=== PATIENT | female | born 1940 | race Caucasian/White ===

== ENCOUNTER → 2017-04-14 | Outpatient (CLI) | payer MEDICARE ==
--- NOTE | 2017-04-14 15:03 | BD ---
EXAMINATION TYPE: MG DEXA axial skeleton. DATE OF EXAM: 04/14/2017 CLINICAL HISTORY: M81.8 Osteoporosis w/o complications Height: 60.5 inches Weight: 138 FRAX RISK QUESTIONS: Alcohol (3 or more units per day): no Family History (Parent hip fracture): no Glucocorticoids (More than 3mos): no (Ex: prednisone, prednisolone, methylprednisolone, dexamethasone, and hydrocortisone). History of Fracture in Adulthood: no Secondary Osteoporosis: 1. Type 1 Diabetes: no 2. Hyperthyroidism: no 3. Menopause before 45: no 4. Malnutrition: no 5. Chronic liver disease: no Rheumatoid Arthritis: no Current Tobacco Use: no RISK FACTORS HISTORY OF: Hip Fracture (Right/Left): no Spine Fracture: no History of Wrist Fracture: no Surgery to Spine/Hip(right/left)/Wrist (right/left): no Family History of Osteoporosis: no Active: yes Diet low in dairy products/other sources of calcium: somewhat, dairy upsets stomach Postmenopausal woman: yes Take estrogen and/or progesterone medications: not now How long: for a couple years used "patch" Lost more than 2 inches in height since high school: no Frequent falls: no Poor Health: no Hyperparathyroidism: no Adrenal Insufficiency: no MEDICATIONS: Prednisone or other steroids: no Thyroid Medications: no Osteoporosis Medications: not now Which medication: Boniva How Long: very briefly Additional Medications: Vitamin D, blood pressure meds, cholesterol meds Additional History: osteoporosis w/o complications, severe scoliosis, alf use of antacids EXAM MEASUREMENTS: Bone mineral densitometry was performed using the [email or web address] System. Bone mineral density was attempted to be measured about the Lumbar spine; however unit unable to shiela lyze due to the severe scoliosis present Bone mineral density about the R hip (g/cm2): 0.905 Bone mineral density about the L hip (g/cm2): 0.890 T Score values are as follows: -----R Neck: -1.0 -----L Neck: -1.1 -----R Total: -1.2 -----L Total: -1.3 Bone mineral density has: Decreased -9.2% since study of: 08/29/2007 IMPRESSION: Normal (Values between +1 and -1 indicate normal bone mass). Consider repeating this study in 5 year s or sooner if there is some new clinical indication. Right Neck Osteopenia (T Score between -2.5 and -1 as noted by T score values Left Neck & Bilateral Totals There is slightly increased risk of fracture and the patient may be considered for treatment. Re-Screen 2-5 years. NOTE: T-SCORE=SD OF THE YOUNG ADULT MEAN.
== END | disposition home or self-care (01) ==
LOC: RADBDWWP 08:28
PROVIDERS: ATTEND Family Medicine
DX: M85.80 Other specified disorders of bone density and structure, unspecified site (principal)
CPT/HCPCS: 77080

== ENCOUNTER → 2019-03-12 | Outpatient (CLI) | payer MEDICARE ==
--- NOTE | 2019-03-12 14:17 | XR ---
EXAMINATION TYPE: XR shoulder complete LT DATE OF EXAM: 03/12/2019 COMPARISON: NONE HISTORY: Pain TECHNIQUE: Three views are submitted. FINDINGS: The osseous structures are intact. There is no acute fracture or dislocation. Arthropathy of the AC joint with severe narrowing and spurring. IMPRESSION: 1. Severe AC joint arthropathy correlate for rotator cuff impingement. 2. There is subsegmental consolidation adjacent to left heart border.
== END | disposition home or self-care (01) ==
LOC: RADXRMAIN 13:56
PROVIDERS: ATTEND Orthopaedic Surgery
DX: M19.012 Primary osteoarthritis, left shoulder (principal)

== ENCOUNTER → 2019-03-16 | Outpatient (CLI) | payer MEDICARE ==
--- NOTE | 2019-03-16 14:54 | US ---
EXAMINATION TYPE: US thyroid st tissue head/neck DATE OF EXAM: 03/16/2019 COMPARISON: NONE CLINICAL HISTORY: E04.1 Non toxic single thyroid nodule. Thyroid nodule GLAND SIZE: Right Lobe: 4.4 x 1.5 x 1.2 cm Overall Parenchyma: heterogenous Left Lobe: 3.2 x 1.1 x 1.3cm Overall Parenchyma: heterogeneous Isthmus Thickness: 0.2 cm NODULES RIGHT: # of nodules measured on right: 0 LEFT: # of nodules measured on left: 1 1. 0.9 X 0.7 x 0.9 cm isoechoic nodule at the lower pole with poorly defined margins; . This nodul e is wider than tall and shows intranodular vascularity. Prior size: no prior ISTHMUS: # of nodules measured in the isthmus: 0 Bilateral neck scanned, no evidence of lymphadenopathy. IMPRESSION: Solitary subcentimeter left thyroid nodule for which surveillance is recommended. No greater than 1 c m thyroid nodule is seen.
== END ==
LOC: RADUSWWP 13:19
PROVIDERS: ATTEND Family Medicine
DX: E04.1 Nontoxic single thyroid nodule (principal)
CPT/HCPCS: 76536

== ENCOUNTER → 2020-05-21 | Outpatient (CLI) | payer MEDICARE ==
--- NOTE | 2020-05-21 16:28 | BD ---
EXAMINATION TYPE: Axial Bone Density DATE OF EXAM: 05/21/2020 COMPARISON: 04/14/2017 CLINICAL HISTORY: 79-year-old female postmenopausal screening Height: 59.5 IN Weight: 130 LBS FRAX RISK QUESTIONS: Secondary Osteoporosis: 3. Menopause before 45: YES PARTIAL HYST AGE 35 RISK FACTORS HISTORY OF: Active: MODERATE Diet low in dairy products/other sources of calcium: YES Postmenopausal woman: PARTIAL HYST AGE 35 Lost more than 2 inches in height since high school: YES 5" MEDICATIONS: Osteoporosis Medications: NOT NOW Which medication: Boniva How Long: TOOK FOR 1 YEAR Additional Medications: VIT D, CRESTOR, BLOOD PRESSURE MED EXAM MEASUREMENTS: Bone mineral densitometry was performed using the [employer] System. Bone mineral density as measured about the Lumbar spine is: ----- L1-L4(G/cm2): 0.548 T Score Values are as follows: ----- L2: -6.1 ----- L3: -4.7 ----- L4: -5.1 ----- L1-L4: -5.3 Unable to determine if these measurements are accurate due to a severe underlying scoliosis. Bone mineral density NO CHANGE SINCE 04/14/2017 Bone mineral density about the R hip (g/cm2): 0.809 Bone mineral density about the L hip (g/cm2): 0.861 T Score values are as follows: -----R Neck: -1.6 -----L Neck: -1.3 -----R Total: -1.8 -----L Total: -1.7 Bone mineral density has: Decreased -15.3% since study of: 04/14/2017 IMPRESSION: There is a severe lumbar scoliosis. Unable to determine if the bone densitometry measurements in the lumbar spine are accurate. Measurements there would suggest osteoporosis. Measurements at the hips wo uld suggest osteopenia. Consider an additional measurement at the forearm to help determine osteopeni a versus osteoporosis. NOTE: T-SCORE=SD OF THE YOUNG ADULT MEAN.
--- NOTE | 2020-05-22 12:20 | MM ---
Reason for exam: screening (asymptomatic). Last mammogram was performed 1 year and 8 months ago. History: Patient is postmenopausal. Cyst aspiration of the left breast. Cyst aspiration of the right breast. Excisional biopsy of the left breast. Took estrogen for 11 years. Physical Findings: A clinical breast exam by your physician is recommended on an annual basis and results should be correlated with mammographic findings. MG 3D Screening Mammo W/Cad Bilateral CC and MLO view(s) were taken. XCCL view(s) were taken of the left breast. Prior study comparison: September 07, 2018, bilateral MG 3d screening mammo w/cad. August 06, 2015, mammogram, performed at [facility]. The breast tissue is heterogeneously dense. This may lower the sensitivity of mammography. No significant changes when compared with prior studies. ASSESSMENT: Benign, BI-RAD 2 RECOMMENDATION: Routine screening mammogram of both breasts in 1 year.
== END | disposition home or self-care (01) ==
LOC: RADMAMWWP 07:48
PROVIDERS: ATTEND Family Medicine
DX: Z12.31 Encounter for screening mammogram for malignant neoplasm of breast (principal); M41.86 Other forms of scoliosis, lumbar region
CPT/HCPCS: 77063; 77067; 77080

== ENCOUNTER 2022-03-02 07:35 | Day surgery (SDC) | payer MEDICARE ==
[2022-03-01 10:08] VITALS: BMI 26.4
[~2022-03-02 07:35] MED LIST: LACTATED RINGERS 1,000 ML IV SCH; LIDOCAINE 1% (10MG/ML) FOR IV START INTRADERMA PRN
[2022-03-02 08:02] VITALS: TEMP 97.9
[2022-03-02] MEDS ORDERED: PROPOFOL 10 MG/ML 20 ML VIAL IV ONE (08:58)
[2022-03-02] MEDS ORDERED: LIDOCAINE 2% INJ 20 MG/ML (2 ML VIAL) ONE (08:58)
--- NOTE | 2022-03-02 09:09 | P.PCN ---
Date of Procedure: 03/02/22 Procedure(s) Performed: BRIEF HISTORY: Patient is a 81-year-old, pleasant, white female scheduled for an upper endoscopy as a part of evaluation of GERD/intermittent dysphagia to solids of several years duration. She was on omeprazole 20 mg daily and recently her medication was changed to Protonix 40 mg daily because of worsening symptoms.. PROCEDURE PERFORMED: Esophagogastroduodenoscopy with biopsy. PREOPERATIVE DIAGNOSIS: GERD/intermittent dysphagia to solids. IV sedation per anesthesia. PROCEDURE: After informed consent was obtained, the patient was brought into the endoscopy unit. IV sedation was administered by Anesthesia under continuous monitoring. Initially the Olympus GIF-140 video endoscope was inserted into the mouth. Esophagus intubated without any difficulty. It was gradually advanced into the stomach and duodenum and carefully examined. The bulb and the second part of the duodenum appeared normal. The scope at this time was withdrawn to the stomach, adequately insufflated with air, and upon careful examination, mucosa of the antrum, had mild gastritis and biopsies were done from this area. The body, cardia and the fundus appeared normal. The scope was then withdrawn into the esophagus. The GE junction was located at 36 cm from the incisors. It was an early distal esophageal stricture at the GE junction which was dilated using 12-15 mm balloon in a sequential fashion for 30 seconds. The esophagus appeared normal. There were no erosions or ulcerations seen and the patient tolerated the procedure well. IMPRESSION: 1. Distal esophageal early stricture status post balloon dilation using 12-15 mm TTS balloon as described above. 2. Mild antral gastritis. RECOMMENDATIONS: The findings of this examination were discussed with the patient as well as a family. He was advised to be on a clear liquid diet for lunch. Continue with Protonix 40 mg daily and follow antireflux measures..
[2022-03-02 09:17] VITALS: RESP 18
[2022-03-02 09:31] VITALS: BP 138/90; PULSE 86
== END 2022-03-02 09:50 | disposition home or self-care (01) ==
LOC: ORWHC2ENDO 07:35
PROVIDERS: ATTEND Internal Medicine Gastroenterology
DX: K29.50 Unspecified chronic gastritis without bleeding (principal); Z79.899 Other long term (current) drug therapy
CPT/HCPCS: 43239; 43249; 88305; J2704; J2001; C1726

== ENCOUNTER 2022-04-03 18:15 | Emergency (ER) | payer MEDICARE ==
[2022-04-03 18:32] VITALS: BP 142/64; PULSE 87; RESP 16
--- NOTE | 2022-04-03 19:05 | ED ---
General Adult HPI - General Chief complaint: Extremity Injury, Lower Stated complaint: leg injury Time Seen by Provider: 04/03/22 19:04 Source: patient Mode of arrival: ambulatory Limitations: no limitations - History of Present Illness Initial comments: Patient presents to the ED with her for evaluation. Patient states that she has had right lower extremity pain for the past 2 days. Patient states that her pain began after lifting some barrels of gravel while gardening, but she denies any definite injury at that time. Patient denies direct leg or back trauma, and she denies falling. Patient states that her pain began along the side of her right hip, but it has since moved down to behind her right knee and into her right wilson region. Patient states that her pain is dull and constant. Patient denies any aggravation with ambulation, palpation or movement. Patient denies fever or chills, headache, focal numbness/weakness/neuro deficit, chest pain or pressure, dyspnea, palpitations, dizziness, abdominal pain, nausea or vomiting, incontinence or urinary retention, or any other symptoms or complaints. Patient states that she has been taking Tylenol for her pain without relief. Patient states that her pain is currently 8/10 in severity. - Related Data Home Medications Medication Instructions Recorded Confirmed Aspirin 81 mg PO DAILY 03/01/22 03/01/22 Cholecalciferol [Vitamin D3 (25 25 mcg PO DAILY 03/01/22 03/02/22 Mcg = 1000 Iu)] Pantoprazole [Protonix] 40 mg PO DAILY 03/01/22 03/01/22 Rosuvastatin [Crestor] 10 mg PO DAILY 03/01/22 03/01/22 amLODIPine [Norvasc] 5 mg PO HS 03/01/22 03/02/22 Previous Rx's Medication Instructions Recorded methylPREDNISolone Dose Pack 24 mg PO DAILY #1 tab 04/03/22 [Medrol Dose Pack] Allergies Allergy/AdvReac Type Severity Reaction Status Date / Time ibandronate sodium Allergy Nausea & Verified 04/03/22 18:32 [From Boniva] Vomiting Review of Systems ROS Statement: Those systems with pertinent positive or pertinent negative responses have been documented in the HPI. ROS Other: All systems not noted in ROS Statement are negative. Past Medical History Past Medical History: Hyperlipidemia, Hypertension, Sleep Apnea/CPAP/BIPAP Additional Past Medical History / Comment(s): having difficulty swallowing, uses cpap History of Any Multi-Drug Resistant Organisms: None Reported Additional Past Surgical History / Comment(s): states "hiatal hernia repair with mesh put around my esophagus" Past Anesthesia/Blood Transfusion Reactions: No Reported Reaction Smoking Status: Never smoker - Past Family History Mother Family Medical History: No Reported History Father Family Medical History: Cancer Additional Family Medical History / Comment(s): colon General Exam Limitations: no limitations General appearance: alert, in no apparent distress Head exam: Present: atraumatic, normocephalic Eye exam: Present: normal appearance, EOMI ENT exam: Present: mucous membranes moist Respiratory exam: Present: normal lung sounds bilaterally. Absent: respiratory distress, wheezes, rales, rhonchi, stridor Cardiovascular Exam: Present: regular rate, normal rhythm, normal heart sounds, other (Normal radial and dorsalis pedis pulses bilaterally) GI/Abdominal exam: Present: soft. Absent: distended, tenderness, guarding Extremities exam: Present: normal inspection, full ROM, other (Negative Homans sign bilaterally). Absent: tenderness, pedal edema, calf tenderness Back exam: Absent: tenderness, CVA tenderness (R), CVA tenderness (L) Neurological exam: Present: alert, oriented X3, CN II-XII intact, other (No evidence of lower extremity neurological deficit or saddle anesthesia on examination). Absent: motor sensory deficit Psychiatric exam: Present: normal affect, normal mood Skin exam: Present: warm, dry, intact, normal color Course Vital Signs 04/03/22 18:29 Pulse Rate 87 Respiratory 16 Rate Blood Pressure 142/64 O2 Sat by Pulse 97 Oximetry - Reevaluation(s) Reevaluation #1: 04/03/22 22:02 Patient states that her pain has improved with ED treatment. Patient denies development of any new symptoms while in the ED. Patient remains alert and breathing comfortably. Patient and are aware the patient's test results, and patient feels comfortable being discharged home with her at this time. Patient was counseled about leg pain/lumbar radiculopathy, and she was clearly explained return and follow-up instructions. Patient was instructed to follow up closely with her primary care provider. Patient feels comfortable with this plan. Medical Decision Making - Medical Decision Making Patient's lumbosacral x-rays show no acute abnormality. Patient's right lower extremity venous duplex ultrasound is negative for DVT. I suspect that the patient's right leg pain is likely secondary to lumbar radiculopathy. Will discharge patient home with a Tylenol #3 starter pack, as well as a prescription for a Medrol Dosepak. Patient was instructed to follow up closely with her primary care provider. Patient was also instructed to take it easy and avoid any strenuous activity, heavy lifting or bending at her waist. Patient feels comfortable with this plan. - Radiology Data Right lower extremity venous duplex ultrasound: No evidence of deep vein thrombosis in the right leg. Lumbosacral spine x-rays: Scoliotic deformity similar to old CT scan of 02/27/2011. No acute bony abnormality seen. Disposition Clinical Impression: Right leg pain Narrative: Suspected lumbar radiculopathy Disposition: HOME SELF-CARE Condition: Stable Instructions (If sedation given, give patient instructions): Lumbar Radiculopathy (ED), Leg Pain (ED) Additional Instructions: Return to the ER immediately should you develop new or worsening pain, leg numbness or weakness, trouble controlling your bladder or bowels, a fever, shortness of breath, feeling dizzy or faint, or new or worsening symptoms. Follow up closely with your primary care provider. Prescriptions: methylPREDNISolone Dose Pack [Medrol Dose Pack] 24 mg PO DAILY #1 tab Is patient prescribed a controlled substance at d/c from ED?: No Referrals: Paolo Carias III, MD [Primary Care Provider] - 1-2 days Time of Disposition: 22:08
[2022-04-03] MEDS ORDERED: HYDROmorphone 0.5 MG/0.5 ML SYRINGE IM STA (19:10)
--- NOTE | 2022-04-03 21:47 | US ---
EXAMINATION TYPE: US venous doppler duplex LE RT DATE OF EXAM: 04/03/2022 9:16 PM COMPARISON: NONE CLINICAL HISTORY: Right leg pain, rule out DVT. SIDE PERFORMED: Right TECHNIQUE: The lower extremity deep venous system is examined utilizing real time linear array sonog marychuy with graded compression, doppler sonography and color-flow sonography. VESSELS IMAGED: Common Femoral Vein Deep Femoral Vein Greater Saphenous Vein * Femoral Vein Popliteal Vein Small Saphenous Vein * Proximal Calf Veins (* superficial vessels) Right Leg: Negative for DVT IMPRESSION: No evidence of deep vein thrombosis in the right leg.
--- NOTE | 2022-04-03 21:50 | XR ---
EXAMINATION TYPE: XR lumbar spine 2 or 3V DATE OF EXAM: 04/03/2022 COMPARISON: NONE HISTORY: Pain TECHNIQUE: 3 views FINDINGS: There is moderate thoracolumbar levoscoliotic deformity. There is also kyphotic deformity of the thor acolumbar junction. No definite compression fracture. Sacroiliac joints are intact. IMPRESSION: Scoliotic deformity similar to old CT scan of 02/27/2011. No acute bony abnormality seen.
[2022-04-03] MEDS ORDERED: ACET/COD 300 MG/30 MG STARTER PACK 6 TAB BTL PO STA (22:02)
== END 2022-04-03 23:00 | disposition home or self-care (01) ==
LOC: EC 18:15
DX: M79.604 Pain in right leg (principal); I10 Essential (primary) hypertension; E78.5 Hyperlipidemia, unspecified; Z79.82 Long term (current) use of aspirin; Z79.899 Other long term (current) drug therapy
CPT/HCPCS: 72100; 93971; 99284; 96372; J1170

== ENCOUNTER 2022-04-11 08:06 | Emergency (ER) | payer MEDICARE ==
[2022-04-11 08:16] VITALS: BP 147/77; PULSE 80; RESP 16; TEMP 97.7
[2022-04-11] MEDS ORDERED: ONDANSETRON ODT 4 MG TAB PO STA (08:56)
[2022-04-11] MEDS ORDERED: HYDROmorphone 0.5 MG/0.5 ML SYRINGE IM STA (08:56)
[2022-04-11] MEDS ORDERED: LIDOCAINE 5% PATCH TOPICAL SCH (09:00)
--- NOTE | 2022-04-11 09:00 | ED ---
General Adult HPI - General Chief complaint: Extremity Problem,Nontraumatic Stated complaint: leg pain Time Seen by Provider: 04/11/22 08:45 Source: patient, family, RN notes reviewed, old records reviewed Mode of arrival: wheelchair Limitations: no limitations - History of Present Illness Initial comments: 81-year-old female presents to the emergency room with family with complaints of low back pain radiating down her right leg. She was seen for this same pain on April 03 had x-ray and ultrasound of the leg which was negative for fracture, negative for DVT. Patient was directed to follow-up with the primary care doctor which she states did not yet make an appointment. She states she did get some relief with the dilaudid that was given in the ER but it wore off and pain returned. She has been trying to take Tylenol at home with no relief. She also finished the Medrol Dosepak that was prescribed, states did not help. She denies any bowel or bladder incontinence, no fevers, states she is able to ambulate. -: week(s) (2) Location: back, right, lower extremity Severity scale (1-10): 9 Quality: aching, constant Consistency: constant Treatments Prior to Arrival: other (tylenol) - Related Data Home Medications Medication Instructions Recorded Confirmed Aspirin 81 mg PO DAILY 03/01/22 03/01/22 Cholecalciferol [Vitamin D3 (25 25 mcg PO DAILY 03/01/22 03/02/22 Mcg = 1000 Iu)] Pantoprazole [Protonix] 40 mg PO DAILY 03/01/22 03/01/22 Rosuvastatin [Crestor] 10 mg PO DAILY 03/01/22 03/01/22 amLODIPine [Norvasc] 5 mg PO HS 03/01/22 03/02/22 Previous Rx's Medication Instructions Recorded methylPREDNISolone Dose Pack 24 mg PO DAILY #1 tab 04/03/22 [Medrol Dose Pack] Lidocaine 5% Patch [Lidoderm] 1 patch TOPICAL DAILY 30 Days #30 04/11/22 patch predniSONE 50 mg PO DAILY #5 tab 04/11/22 Allergies Allergy/AdvReac Type Severity Reaction Status Date / Time ibandronate sodium Allergy Nausea & Verified 04/11/22 08:16 [From Boniva] Vomiting Review of Systems ROS Statement: Those systems with pertinent positive or pertinent negative responses have been documented in the HPI. ROS Other: All systems not noted in ROS Statement are negative. Past Medical History Past Medical History: Hyperlipidemia, Hypertension, Sleep Apnea/CPAP/BIPAP Additional Past Medical History / Comment(s): having difficulty swallowing, uses cpap History of Any Multi-Drug Resistant Organisms: None Reported Additional Past Surgical History / Comment(s): states "hiatal hernia repair with mesh put around my esophagus" Past Anesthesia/Blood Transfusion Reactions: No Reported Reaction Past Psychological History: No Psychological Hx Reported Smoking Status: Never smoker Past Alcohol Use History: None Reported Past Drug Use History: None Reported - Past Family History Mother Family Medical History: No Reported History Father Family Medical History: Cancer Additional Family Medical History / Comment(s): colon General Exam Limitations: no limitations General appearance: alert, in no apparent distress Head exam: Present: atraumatic Neck exam: Present: normal inspection. Absent: tenderness, meningismus Respiratory exam: Present: normal lung sounds bilaterally. Absent: respiratory distress, accessory muscle use Cardiovascular Exam: Present: regular rate GI/Abdominal exam: Present: soft. Absent: distended, tenderness, rigid Extremities exam: Present: full ROM, normal capillary refill. Absent: tenderness, pedal edema, joint swelling, calf tenderness Back exam: Present: full ROM, tenderness (Sacral spine). Absent: CVA tenderness (R), CVA tenderness (L), muscle spasm, rash noted Expanded Back exam: Absent: saddle anesthesia Back exam: Negative Straight Leg Raising: Left, Right Neurological exam: Present: alert, oriented X3 Psychiatric exam: Present: normal affect, normal mood Skin exam: Present: warm, dry. Absent: cyanosis, diaphoretic, pallor Course Vital Signs 04/11/22 08:13 Temperature 97.7 F Pulse Rate 80 Respiratory 16 Rate Blood Pressure 147/77 O2 Sat by Pulse 95 Oximetry Medical Decision Making - Medical Decision Making Patient presents with low back pain radiating down her right leg for 2 weeks. She denies any injury. She was seen on April 03 and had x-rays and ultrasounds done that were negative for spinal fracture or DVT of the right leg. On exam, patient does have good range of motion of right lower extremity. Pedal pulses are present. There is no erythema or swelling noted. Patient does have pain to palpation to the lumbar sacral area, no swelling or bruising noted. No bowel or bladder incontinence, no red flags signs. This is likely radicular symptoms causing pain to the right leg. Patient was given another dose of Dilaudid IM. She was also given Lidoderm patches. Case is discussed with Dr. Falcon who recommended prednisone daily for 5 days which was prescribed. Patient and family member agreeable to following up with primary care doctor next week and discussing possible MRI. Strict return parameters were discussed and she was directed to return to the emergency room with any increased pain, inability to ambulate, fevers or bowel or bladder incontinence. Patient and family member are agreeable to this plan of care. Vital signs are stable. Disposition Clinical Impression: Right leg pain Disposition: HOME SELF-CARE Condition: Good Instructions (If sedation given, give patient instructions): Leg Pain (ED) Additional Instructions: Use Lidoderm patches as prescribed, take the prednisone once a day for the next 5 days. Follow-up with your primary care doctor to discuss the continuation of care. You may need an MRI for further evaluation. Prescriptions: Lidocaine 5% Patch [Lidoderm] 1 patch TOPICAL DAILY 30 Days #30 patch predniSONE 50 mg PO DAILY #5 tab Is patient prescribed a controlled substance at d/c from ED?: No Referrals: Paolo Carias III, MD [Primary Care Provider] - 1-2 days Francisco Javier Armstrong MD [STAFF PHYSICIAN] - 1-2 days Time of Disposition: 09:30
[2022-04-11] MEDS ORDERED: predniSONE 50 MG TAB PO STA (09:37)
== END 2022-04-11 09:56 | disposition home or self-care (01) ==
LOC: EC 08:06
DX: M79.605 Pain in left leg (principal); E78.5 Hyperlipidemia, unspecified; I10 Essential (primary) hypertension; Z88.8 Allergy status to other drugs, medicaments and biological substances
CPT/HCPCS: 99283; 96372; J7512; J1170

== ENCOUNTER → 2022-05-18 | Outpatient (CLI) | payer MEDICARE ==
--- NOTE | 2022-05-18 09:20 | CT ---
EXAMINATION TYPE: CT thor lumbar spine wo con DATE OF EXAM: 05/18/2022 COMPARISON: None HISTORY: 81-year-old female and 5 4.50 Low back pain, radiculopathy TECHNIQUE: Contiguous axial scanning of the thoracic and lumbar spine without IV contrast. Coronal an d sagittal reconstructions performed. CT DLP: 1003.60 mGycm Automated exposure control for dose reduction was used. FINDINGS: There is a severe S-shaped scoliosis. The rotary levoconvex component at the upper lumbar spine is ad vanced. Asymmetric elevation right hemidiaphragm with patchy right basilar opacity, likely volume los s and atelectasis. Surgical material along the GE junction. There appears to be a hueyz-[id number] s ize hiatal hernia. The degree of marked scoliosis makes the level by level assessment very difficult. There is bridging endplate spondylosis and also bridging of the posterior elements beginning at the T 7 level and extending down. No bridging at L4-L5 or L5-S1. Overall vertebral body heights appear preserved. Mild to moderate degenerative disc disease L4-L5 with trace grade 1 anterolisthesis.. Facet arthropat hy lower lumbar spine. There is some bulging at L3-L4 contributing to mild spinal canal narrowing. No evident canal compromi se within the lumbar spine by CT. Also, no evident canal compromise appearance by CT in the thoracic spine. Very limited near foraminal assessment due to the spinal curvature. On the right, there appears to be moderate neuroforaminal narrowing at L4-L5. Very difficult assessment of the remaining neuroforamen. IMPRESSION: 1. SEVERE ROTARY LEVOCONVEX SCOLIOSIS CENTERED ALONG THE UPPER LUMBAR SPINE. COMPENSATORY DEXTROCONVE X SCOLIOSIS OF THE THORACIC SPINE. 2. BRIDGING ENDPLATE SPONDYLOSIS AND ALSO BONY FUSION OF THE POSTERIOR ELEMENTS EXTENDING FROM T7 NICOLE N THROUGH THE L4 LEVELS. THIS WOULD MAKE THIS A FIXED SCOLIOSIS. 3. FACET ARTHROPATHY LOWER LUMBAR SPINE ALONG WITH MILD TO MODERATE DEGENERATIVE DISC DISEASE AT L4-L 5. TRACE GRADE 1 ANTEROLISTHESIS HERE AT L4-L5. 4. NO EVIDENT CANAL COMPROMISE BY CT. 5. VERY LIMITED ASSESSMENT OF THE NEUROFORAMEN DUE TO THE MARKED CURVATURE. THERE APPEARS TO BE A MOD ERATE NEUROFORAMINAL NARROWING ON THE RIGHT AT L4-L5. VERY DIFFICULT ASSESSMENT OF THE REMAINING NEUR OFORAMEN. 6. SURGICAL MATERIAL AT THE GE JUNCTION. SMALL TO MODERATE-SIZED HIATAL HERNIA NOTED.
== END | disposition home or self-care (01) ==
LOC: RADCTMAIN 07:03
PROVIDERS: ATTEND Orthopaedic Surgery
DX: M51.16 Intervertebral disc disorders with radiculopathy, lumbar region (principal); M47.26 Other spondylosis with radiculopathy, lumbar region; K44.9 Diaphragmatic hernia without obstruction or gangrene
CPT/HCPCS: 72128; 72131

== ENCOUNTER → 2022-07-29 | Outpatient (CLI) | payer MEDICARE ==
--- NOTE | 2022-07-30 09:45 | MM ---
Reason for Exam: Screening (asymptomatic). Last mammogram was performed 2 year(s) and 2 month(s) ago. Patient History: Menarche at age 12. Hysterectomy at age 35. Postmenopausal. Patient used Estrogen for 11 years. Cyst Aspiration on the Right side. Cyst Aspiration on the Left side. Excisional Biopsy on the Left side. Maternal aunt had breast cancer, age 62. Risk Values: Dipika 5 year model risk: 1.4%. NCI Lifetime model risk: 2.0%. Prior Study Comparison: 08/06/2015 Screening Mammogram, [facility]. 09/07/2018 Bilateral Screening Mammogram, [facility]. 05/21/2020 Bilateral Screening Mammogram, [facility]. Tissue Density: The breast tissue is heterogeneously dense. This may lower the sensitivity of mammography. Findings: Analyzed By CAD. Chronic nodularity lateral left breast. Unchanged asymmetric density inferior right MLO view. Global asymmetry upper outer right breast is unchanged. No significant change from prior exams. Overall Assessment: Benign, BI-RAD 2 Management: Screening Mammogram of both breasts in 1 year. 1. Patient should continue monthly self breast exams. 2. A clinical breast exam by your physician is recommended on an annual basis. 3. This exam should not preclude additional follow-up of suspicious palpable abnormalities. Electronically signed and approved by: Naina Harrison M.D. Radiologist
== END | disposition home or self-care (01) ==
LOC: RADMAMWWP 14:50
PROVIDERS: ATTEND Family Medicine
DX: Z12.31 Encounter for screening mammogram for malignant neoplasm of breast (principal); Z78.0 Asymptomatic menopausal state; Z80.3 Family history of malignant neoplasm of breast
CPT/HCPCS: 77063; 77067

== ENCOUNTER → 2023-09-16 | Outpatient (CLI) | payer MEDICARE ==
[~2023-09-16] MED LIST changes: -LACTATED RINGERS 1,000 ML IV SCH; -LIDOCAINE 1% (10MG/ML) FOR IV START INTRADERMA PRN; +REGADENOSON 0.4 MG/5 ML SYRINGE IV PRN
--- NOTE | 2023-09-16 10:16 | CA ---
Lexiscan Nuclear Stress Test Report Name: Miriam Lange Exam Date: 09/16/2023 09:29 Exam Location: [facility] Ht (in): 60 Wt (lb): 130 BSA: 1.55 Ordering Phys: Elmira Rodriguez DO Referring Phys: ELMIRA RODRIGUEZ,, Technologist: Augusto Bran Age: 83 Gender: F : 1940 Procedure CPT: Indications: R07.9 CHEST PAIN ICD-10 Codes: Patient History: Medications: Meds past 24 hrs: Pretest Chest Pain: STRESS TEST Lexiscan Protocol Exercise Duration (min:sec): 02:[address] Depressions (mm): Angina Score: Frias Score: Resting HR (bpm): 79 Peak HR (bpm): 117 Resting BP (mmHg): 160 / 86 Peak BP (mmHg): 181 / 79 MPHR: 137 Target HR: 116 % MPHR: 85 METS: 1.0 Total Dose: Peak Dose: Atropine: Double Product: 74560 BP Response: Stress Termination: protocol complete Stress Symptoms: slight dizziness Stress Summary: ECG ANALYSIS Resting ECG: Stress ECG: CONCLUSIONS None diagnostic electrocardiogram stress testing Dr. Dell Elizabeth MD (Electronically Signed) Final Date: 16 September 2023 10:15
--- NOTE | 2023-09-16 13:00 | NM ---
EXAMINATION TYPE: NM stress lexiscan cardiolite DATE OF EXAM: 09/16/2023 COMPARISON: NONE CLINICAL INDICATION: Female, 83 years old with history of R07.9 chest pain; TECHNIQUE: After the intravenous administration of 9.8 mCi Tc 99m Sestamibi - Cardiolite resting SPE CT images acquired 45 minutes post injection. The patient received 0.4mg Lexiscan, 24.4 mCi Tc 99m Sestamibi - Stress images obtained [address] injection FINDINGS: Review of stress and rest SPECT images demonstrates a moderate to large fixed defect along the latera l wall that accentuates on stress images. There is also a small area of reversibility along the apica l septal wall. Gated analysis shows limited augmentation of the lateral wall. Estimated left ventricular ejection fr action of 69 %. TID calculated at 1.1, upper limits of normal. IMPRESSION: 1. Correlate for prior infarct along the lateral wall with findings that suggest some inducible emre- infarct ischemia. 2. Additional focal reversibility along the apical septal wall.
== END | disposition home or self-care (01) ==
LOC: RADNMMAIN 07:54
PROVIDERS: ATTEND Family Medicine
DX: R07.9 Chest pain, unspecified (principal)
CPT/HCPCS: 93017; 78452; A9500; J2785